=== PATIENT | female | born 1990 | race Two or more races ===

== ENCOUNTER 2023-11-20 11:22 | Emergency (ER) | payer BC, OTHER ==
[~2023-11-20] VITALS: Ht 162.6 cm; Wt 66.7 kg
[2023-11-20 11:43] VITALS: BP 131/92; PULSE 65; RESP 18; TEMP 97.6; O2SAT 99
[2023-11-20] MEDS ORDERED: SUMA50TA2 PO (12:49)
== END 2023-11-20 12:55 | disposition home or self-care (01) ==
LOC: ER 11:22
DX: G43.909 Migraine, unspecified, not intractable, without status migrainosus (principal)
CPT/HCPCS: 70450